=== PATIENT | male | born 1970 | race Caucasian/White ===

== ENCOUNTER 2020-02-20 17:24 | Emergency (ER) | payer MEDICAID ==
[~2020-02-20] VITALS: Ht 175.3 cm; Wt 90.0 kg
[2020-02-20] MEDS ORDERED: GABA100C PO (17:46)
[2020-02-20] MEDS ORDERED: TRAZ150T78 PO (17:46)
[2020-02-20] MEDS ORDERED: ESCI20TA PO (17:46)
[2020-02-20] MEDS ORDERED: OLAN10TA3 PO (17:46)
[2020-02-20 18:23] LABS: URINE AMPHETAMINE SCREEN NEGATIVE (Neg); URINE BARBITUATE SCREEN NEGATIVE (Neg); URINE BENZODIAZEPINES SCREEN NEGATIVE (Neg); URINE CANNABINOID SCREEN NEGATIVE (Neg); URINE COCAINE SCREEN NEGATIVE (Neg); URINE METHADONE SCREEN NEGATIVE (Neg); URINE OPIATE SCREEN NEGATIVE (Neg); URINE PHENCYCLIDINE SCREEN NEGATIVE (Neg)
[2020-02-20 18:46] LABS: BASOPHILS # (AUTO) 0.1 X10'3 (0-0.2); BASOPHILS % (AUTO) 0.8 % (0-1); EOSINOPHILS # (AUTO) 0.4 X10'3 (0-0.9); EOSINOPHILS % (AUTO) 4.8 % (0-6); HEMATOCRIT 45.9 % (42.0-52.0); HEMOGLOBIN 15.3 g/dl (14.0-17.9); LYMPHOCYTES # (AUTO) 2.8 X10'3 (1.1-4.8); LYMPHOCYTES % (AUTO) 35.3 % (21-51); MEAN CORPUSCULAR HEMOGLOBIN 28.7 PG (27.0-31.0); MEAN CORPUSCULAR HGB CONC 33.3 g/dL (33.0-36.5); MEAN CORPUSCULAR VOLUME 86.2 FL (78-98); MEAN PLATELET VOLUME 8.2 FL (7.4-10.4); MONOCYTES # (AUTO) 0.4 X10'3 (0-0.9); MONOCYTES % (AUTO) 5.1 % (2-12); NEUTROPHILS # (AUTO) 4.3 X10'3 (1.8-7.7); PLATELET COUNT 258 X10'3 (140-440); RED BLOOD COUNT 5.32 X10'6 (4.70-6.10); RED CELL DISTRIBUTION WIDTH 15.8 % (11.5-14.5); WHITE BLOOD COUNT 7.9 X10'3 (4.5-11.0)
[2020-02-20 18:59] LABS: ALANINE AMINOTRANSFERASE 40 U/L (12-78); ALBUMIN 4.4 G/DL (3.4-5.0); ALBUMIN/GLOBULIN RATIO 1.1 (1.1-1.5); ALKALINE PHOSPHATASE 82 IU/L (46-116); ANION GAP 11 (8-16); ASPARTATE AMINO TRANSFERASE 37 U/L (10-37); BILIRUBIN,TOTAL 0.5 MG/DL (0.1-1.0); BLOOD UREA NITROGEN 9 MG/DL (7-18); BUN/CREATININE RATIO 10.1 (5.4-32.0); CALCIUM 9.2 MG/DL (8.5-10.1); CHLORIDE 103 MMOL/L (99-107); CREATININE 0.89 MG/DL (0.60-1.10); GLUCOSE 89 MG/DL (70-104); POTASSIUM 3.9 MMOL/L (3.5-5.1); SODIUM 138 MMOL/L (135-145); TOTAL CARBON DIOXIDE 24.2 MMOL/L (24-32); TOTAL PROTEIN 8.3 G/DL (6.4-8.2); eGFR 90 ML/MIN
[2020-02-20 19:09] LABS: ETHANOL 0.246 GM/DL (0.0-0.010)
[2020-02-20 19:10] LABS: ACETAMINOPHEN < 2.0 UG/ML (10-30)
--- NOTE | 2020-02-20 21:41 | NUR ---
Pt is sleeping, no s/s of distress noted.
--- NOTE | 2020-02-21 01:00 | NUR ---
PT REMAINS ASLEEP. LYING ON HIS BACK WITH BLANKETS COVERING TO HIS WAIST. RR 14 AND UNLABORED. SITTER AND RN WITHIN VIEW OF PT AAT.
--- NOTE | 2020-02-21 03:22 | NUR ---
pt up to br to void.
--- NOTE | 2020-02-21 04:03 | NUR ---
Pt up to BR to void again. Returned to his bed and now lying down again. Denies any needs.
--- NOTE | 2020-02-21 04:54 | NUR ---
[facility] calling for inquiry on Pt. They will need a UA prior to presenting case the their MD. Order just written for UA. Pt sleeping, will attempt to collect once he awakens.
[2020-02-21 05:42] LABS: CLARITY,URINE CLEAR (Clear); COLOR,URINE STRAW (Yellow); GLUCOSE, URINE NEGATIVE (Neg); KETONES,URINE NEGATIVE (Neg); LEUKOCYTE ESTERASE ,URINE NEGATIVE (Neg); NITRITES, URINE NEGATIVE (Neg); OCCULT BLOOD,URINE NEGATIVE (Neg); PROTEIN,URINE NEGATIVE (Neg); UROBILINOGEN,URINE 0.2 E.U/dL (0.2-1.0)
[2020-02-21 05:43] LABS: UA COLLECTION TYPE VOIDED
--- NOTE | 2020-02-21 05:49 | NUR ---
ua resulted and faxed to Je[facility], [phone].
[2020-02-21 05:56] VITALS: BP 138/84
--- NOTE | 2020-02-21 06:40 | NUR ---
Received pt. sleeping on his back, rr even and unlabored.
[2020-02-21] MEDS ORDERED: gabapentin 100mg capsule PO SCH (08:00)
[2020-02-21] MEDS ORDERED: ESCITALOPRAM OXALATE 5 MG TABLET PO SCH (08:00)
--- NOTE | 2020-02-21 08:30 | NUR ---
Pt. compliant with medications and breakfast, he returned back to sleep and appears to be resting comfortably at this time. Pt. denies any s/s of alcohol withdrawal (no n/v, dizziness, or a/v/rouse) will continue to monitor.
--- NOTE | 2020-02-21 09:52 | NUR ---
Pt. discharged to [facility] at this time. He was walked out to waiting vehicle accompanied by carrier driver and security. Pt. is able to contract for safety at this time. Addendum: 02/21/20 at 1027 by CARMEN Monserrat Evans
[2020-02-21] MEDS ORDERED: olanzapine 10mg tablet PO SCH (21:00)
[2020-02-21] MEDS ORDERED: traZODone 150mg tablet PO SCH (21:00)
== END 2020-02-21 10:35 ==
LOC: EDBD 17:26 → ER 17:26
DX: R45.851 Suicidal ideations (principal); Z79.899 Other long term (current) drug therapy
CPT/HCPCS: 36415; 80053; 80305; 80320; 80329; 81003; 84443; 85025; 99285